=== PATIENT | male | born 1985 | race Hispanic/Latino ===

== ENCOUNTER → 2019-11-08 | Outpatient (CLI) | payer MEDICAID ==
[~2019-11-08] MED LIST: ASPI-1443 PO; CHOL4PAC21 PO; PANT40TA25 PO
== END | disposition home or self-care (01) ==
LOC: SHCH 15:42
PROVIDERS: ATTEND Internal Medicine Cardiovascular Disease
DX: I51.7 Cardiomegaly (principal); Q20.9 Congenital malformation of cardiac chambers and connections, unspecified
CPT/HCPCS: 93306; 93356

== ENCOUNTER 2021-08-06 14:26 | Emergency (ER) | payer MEDICAID ==
[~2021-08-06] VITALS: Ht 167.6 cm; Wt 102.1 kg
[~2021-08-06 14:26] MED LIST changes: -PANT40TA25 PO; +PANT40TA54 PO
[2021-08-06 14:56] LABS: BASOPHILS % (AUTO) 0.7 % (0.0-5.0); HEMATOCRIT 43.3 % (42-54); LYMPHOCYTES % (AUTO) 38.5 % (21.0-51.0); MEAN CORPUSCULAR HGB CONC 34.9 g/dL (32.0-36.0); MEAN CORPUSCULAR VOLUME 91.7 fL (79-99); MONOCYTES % (AUTO) 8.1 % (3.0-13.0); NEUTROPHILS % (AUTO) 51.5 % (40.0-77.0); PLATELET COUNT (AUTO) 277 K/uL (130-400); RED BLOOD CELL COUNT(AUTO) 4.72 MIL/uL (4.50-6.20); RED CELL DISTRIBUTION WIDTH 11.9 % (11.0-15.5); WHITE BLOOD COUNT (AUTO) 8.8 K/uL (4.8-10.8)
[2021-08-06 14:58] LABS: APPEARANCE,URINE Clear (CLEAR); BILIRUBIN,URINE Negative (NEGATIVE); COLOR,URINE Yellow (YELLOW); GLUCOSE, URINE (UA) 250 mg/dL (NEGATIVE); KETONES,URINE Negative (NEGATIVE); LEUKOCYTE ESTERASE ,URINE Negative (NEGATIVE); NITRATE,URINE Negative (NEGATIVE); OCCULT BLOOD,URINE Negative (NEGATIVE); PROTEIN,URINE Negative (NEGATIVE); UROBILINOGEN,URINE 0.2 mg/dL (0.2-1.0)
[2021-08-06 15:05] LABS: AMPHET/METH SCREEN,URINE NEGATIVE (NEGATIVE); BARBITURATE SCREEN, URINE NEGATIVE (NEGATIVE); BENZODIAZEPINES SCREEN,URINE NEGATIVE (NEGATIVE); CANNABINOID SCREEN,URINE NEGATIVE (NEGATIVE); COCAINE SCREEN,URINE NEGATIVE (NEGATIVE); OPIATE SCREEN,URINE NEGATIVE (NEGATIVE); PHENCYCLIDINE SCREEN,URINE NEGATIVE (NEGATIVE)
[2021-08-06 15:11] LABS: CREATININE 0.8 mg/dL (0.5-1.5); POTASSIUM 3.3 mmol/L (3.5-5.1)
[2021-08-06 15:12] LABS: RBC,URINE 0-1 /HPF (0-1); WBC,URINE 0-1 /HPF (0-1)
[2021-08-06 15:13] LABS: BACTERIA,URINE Rare /HPF (None Seen); SQUAMOUS EPITHELIAL CELL,UR None Seen /HPF (0-2)
[2021-08-06 15:18] LABS: ALBUMIN 4.1 g/dL (3.5-5.0); BILIRUBIN,TOTAL 1.4 mg/dL (0.2-1.0); TOTAL PROTEIN, SERUM 8.5 g/dL (6.0-8.3)
[2021-08-06] MEDS ORDERED: POTASSIUM BICARB/CIT AC 25 MEQ TABLET.EFF PO ONE (15:30)
[2021-08-06] MEDS: LORAZEPAM 1 MG TABLET PO ONE ×2 (16:09→16:18)
[2021-08-06] MEDS ORDERED: LORAZEPAM 1 MG TABLET ONE (16:11)
[2021-08-06] MEDS ORDERED: HYDR-3421 PO (16:33)
[2021-08-06 17:14] VITALS: BP 125/66
== END 2021-08-06 17:17 | disposition home or self-care (01) ==
LOC: EDH 14:26
DX: R07.89 Other chest pain (principal); E11.65 Type 2 diabetes mellitus with hyperglycemia; F41.9 Anxiety disorder, unspecified; K21.9 Gastro-esophageal reflux disease without esophagitis; E66.9 Obesity, unspecified; Z88.5 Allergy status to narcotic agent; Z79.82 Long term (current) use of aspirin; Z68.36 Body mass index [BMI] 36.0-36.9, adult
CPT/HCPCS: 36415; 71045; 80053; 80305; 81001; 84484; 85025; 93005

== ENCOUNTER → 2022-08-29 | Outpatient (CLI) | payer MEDICAID ==
[~2022-08-29] MED LIST changes: -CHOL4PAC21 PO; +CHOL4POW4 PO; +HYDR-3421 PO
== END | disposition home or self-care (01) ==
LOC: LAB 15:00
PROVIDERS: ATTEND Internal Medicine Cardiovascular Disease
DX: R07.9 Chest pain, unspecified (principal)
CPT/HCPCS: 36415; 83880; 84484; 85378

== ENCOUNTER → 2022-09-09 | Outpatient (CLI) | payer MEDICAID ==
[~2022-09-09] MED LIST changes: +IOHEXOL 350 MG/ML 100ML INFUS..BTL IV ONE
== END | disposition home or self-care (01) ==
LOC: RAH 07:48
PROVIDERS: ATTEND Internal Medicine Cardiovascular Disease
DX: R07.9 Chest pain, unspecified (principal)
CPT/HCPCS: 71270; Q9967; 71275

== ENCOUNTER → 2023-11-21 | Outpatient (CLI) | payer MEDICAID ==
[~2023-11-21] MED LIST changes: -IOHEXOL 350 MG/ML 100ML INFUS..BTL IV ONE
== END | disposition home or self-care (01) ==
LOC: LAB 15:14
PROVIDERS: ATTEND Internal Medicine Cardiovascular Disease
DX: I48.0 Paroxysmal atrial fibrillation (principal); I45.10 Unspecified right bundle-branch block
CPT/HCPCS: 36415; 85378

== ENCOUNTER → 2023-12-22 | Outpatient (CLI) | payer MEDICAID | END | disposition home or self-care (01) | LOC: SHCH 14:02 | PROVIDERS: ATTEND Internal Medicine Cardiovascular Disease | DX: R07.9 Chest pain, unspecified (principal) | CPT/HCPCS: 93306 ==

== ENCOUNTER → 2024-04-09 | Outpatient (CLI) | payer MEDICAID ==
--- NOTE | 2024-04-10 14:58 | HMCSR ---
APPROVED REPORT EXAM: Two-dimensional and M-mode echocardiogram with Doppler and color Doppler. 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, unspecified 2D Dimensions RVDd5.1 cmLVEF(%)62.8 (>50%)LVED Vol(simp.)43.9 mL IVSd1.1 (0.7-1.1cm)FS(%)34 %LVES Vol(simp.)14.6 mL LVDd4.7 (3.8-5.6cm)Ao Root(2D)2.7 (2.0-3.7cm)LVEF(%, simp.)66 % PWd0.9 (0.7-1.1cm)LVOT diam2.6 (1.8-2.4cm)LA ESV INDEX (2CH)5.70 mL/m2 IVSs1.0 cm LVDs3.1 (2.5-4.0cm) PWs1.2 cm M-Mode Dimensions EPSS1.3 cm LA (MM)3.9 (1.6-4.0cm) Ao Root(MM)2.8 (2.0-3.7cm) Aortic Valve AoV VTI0.3 mAo Mean GR6.0 mmHgLVOT VTI0.18 m NATALIA (VMAX)3.1 cm2AVA (VTI) 3.1 cm2 Mitral Valve MV E Vmax82.9 cm/sDECEL Exdd171 ms MV A Vmax35.9 cm/sP 1/2 T65 ms E/A ratio2.3MVA (PHT)3.4 cm2 TDI E/E' Skucko83.1E/E' Owdwohf22.3 Medial E' Peak V5.90 cm/sLateral E' Peak V4.80 cm/s Tricuspid Valve RAP (EST) 8 mmHgRVSP8.0 mmHg Left Ventricle Left ventricular cavity size is normal. There is normal LV segmental wall motion. There is normal lef t ventricular wall thickness. LVEF is 60-65%. Right Ventricle The right ventricle is severely dilated. Right ventricular systolic function is mildly reduced. Atria The left atrium size is normal. The right atrium size is normal. Aortic Valve The aortic valve is not well visualized. Trivial aortic regurgitation is present. There is no aortic valvular stenosis. Mitral Valve Mitral valve leaflets appear normal. There is no mitral valve regurgitation noted. There is no mitral valve stenosis. Tricuspid Valve The tricuspid valve leaflets appear normal. There is trace tricuspid valve regurgitation noted. Pulmonic Valve Pulmonic valve is not visualized. Great Vessels The aortic root is normal in size. IVC is not well visualized. Pericardium No pericardial effusion. Other Information Quality : Technically diffcult study due to body habitus. Conclusion LVEF is 60-65%. The right ventricle is severely dilated. Right ventricular systolic function is mildly reduced. There is trace tricuspid valve regurgitation noted. RVSP 8 mmHg
== END | disposition home or self-care (01) ==
LOC: RAH 15:33
PROVIDERS: ATTEND Internal Medicine Cardiovascular Disease
DX: I35.1 Nonrheumatic aortic (valve) insufficiency (principal); I51.7 Cardiomegaly; Q24.9 Congenital malformation of heart, unspecified
CPT/HCPCS: 93306